=== PATIENT | female | born 1985 | race Hispanic/Latino ===

== ENCOUNTER 2017-06-20 19:51 | Emergency (ER) | payer MEDICAID, SELFPAY ==
[2017-06-20] MEDS ORDERED: Lorazepam 2 MG/ML VIAL ONE (20:08)
[2017-06-20 20:56] LABS: #Basophils 0.1 thou/uL (0.0-0.2); #Eosinphils 0.2 thou/uL (0.0-0.7); #Lymphocytes 4.3 thou/uL (1.20-3.40); #Monocytes 0.7 thou/uL (0.11-0.59); #Neutrophils 5.3 thou/uL (1.40-6.50); %Basophils 1.3 % (0.0-1.0); %Eosinophils 1.7 % (0.0-10.0); %Lymphocytes 40.5 % (21.0-51.0); %Monocytes 6.5 % (0.0-10.0); Hematocrit 49.7 % (36.0-47.0); Mean Platelet Volume 9.1 fL (7.4-10.4); Red Blood Cell (RBC) Count 5.74 mill/uL (4.20-5.40); White Blood Cell (WBC) Count 10.6 thou/uL (4.8-10.8)
[2017-06-20 21:05] LABS: ALT (SGPT) 15 U/L (8-55); AST (SGOT) 13 U/L (5-34); Alkaline Phosphatase 126 U/L (40-150); Anion Gap 17 mmol/L (10-20); BUN (Urea Nitrogen) 9 mg/dL (7.0-18.7); Bilirubin, Total 0.4 mg/dL (0.2-1.2); Calc. Creatinine Clearance 0 mL/min (70-130); Carbon Dioxide 21 mmol/L (22-29); Chloride 103 mmol/L (98-107); Estimated GFR-MDRD 78; Globulin 3.6 g/dL (2.4-3.5)
[2017-06-20] MEDS ORDERED: Ketorolac Tromethamine 30 MG/ML VIAL ONE (22:36)
[2017-06-20] MEDS ORDERED: Insulin Regular 300 UNITS/3 ML VIAL ONE (22:48)
== END 2017-06-20 23:42 | disposition home or self-care (01) ==
LOC: ERS 19:51
DX: F43.9 Reaction to severe stress, unspecified (principal); R06.4 Hyperventilation; E11.65 Type 2 diabetes mellitus with hyperglycemia; I10 Essential (primary) hypertension; G43.909 Migraine, unspecified, not intractable, without status migrainosus; F17.210 Nicotine dependence, cigarettes, uncomplicated
CPT/HCPCS: 36416; 80053; 85025; 93005; 93010; 96361; 96374; 96375; J1815; J1885; J2060

== ENCOUNTER 2017-12-19 07:38 | Emergency (ER) | payer SELFPAY ==
[2017-12-19 08:00] LABS: #Eosinphils 0.2 thou/uL (0.0-0.7); #Monocytes 0.7 thou/uL (0.11-0.59); #Neutrophils 13.6 thou/uL (1.40-6.50); %Basophils 0.1 % (0.0-1.0); %Lymphocytes 6.4 % (21.0-51.0); %Monocytes 4.3 % (0.0-10.0); %Neutrophils 88.1 % (42.0-75.0); Hemoglobin 16.9 g/dL (12.0-16.0); Mean Corpuscular HGB CONC 34.1 g/dL (32.0-36.0); Mean Corpuscular Hemoglobin 29.4 pg (27.0-31.0); Mean Corpuscular Volume 86.1 fl (81.0-99.0); Mean Platelet Volume 8.6 fL (7.4-10.4); Platelet Count 211 thou/uL (130-400); Red Blood Cell (RBC) Count 5.77 mill/uL (4.20-5.40); White Blood Cell (WBC) Count 15.4 thou/uL (4.8-10.8)
[2017-12-19 08:10] LABS: ALT (SGPT) 16 U/L (8-55); AST (SGOT) 13 U/L (5-34); Albumin 4.3 g/dL (3.5-5.0); Alkaline Phosphatase 116 U/L (40-150); Anion Gap 16 mmol/L (10-20); BUN (Urea Nitrogen) 17 mg/dL (7.0-18.7); Bilirubin, Total 0.8 mg/dL (0.2-1.2); Calc. Creatinine Clearance 0 mL/min (70-130); Calcium 9.5 mg/dL (7.8-10.44); Carbon Dioxide 28 mmol/L (22-29); Chloride 98 mmol/L (98-107); Estimated GFR-MDRD 89; Globulin 3.3 g/dL (2.4-3.5); Glucose 411 mg/dL (70-105); Lipase 33 U/L (8-78); Potassium 4.6 mmol/L (3.5-5.1); Protein, Total 7.6 g/dL (6.0-8.3); Sodium 137 mmol/L (136-145)
[2017-12-19 08:50] LABS: BHCG - Serum Negative (NEGATIVE); Pregs Control Background? CLEAR/WHITE (CLR/WHITE); Pregs Control Bar Appear? YES (CONTROL BAR)
[2017-12-19 09:10] LABS: Bilirubin Negative (Negative); Blood, Urine Negative (Negative); Clarity CLEAR (Clear); Glucose, Urine (Dipstick) >=1000 mg/dL (Negative); Leukocyte Negative (Negative); Nitrite Negative (Negative); Protein, Urine (Dipstick) Trace mg/dL (Neg-Trace); Urobilinogen 0.2 mg/dL (0.2-1.0); pH, Urine 5.5 (5.0-9.0)
[2017-12-19 09:16] LABS: Specific Gravity, Urine 1.042 (1.002-1.036)
[2017-12-19] MEDS ORDERED: Ondansetron HCl/PF 4 MG/2 ML Vial ONE ×2 (09:35→11:24)
[2017-12-19] MEDS ORDERED: Fentanyl 100 MCG/2 ML VIAL ONE (09:35)
[2017-12-19 09:56] LABS: Base Excess-Venous -0.3 mmol/L (0 (+/- 2.5)); Bicarbonate (HCO3v) 26.1 mmol/L (1.0-85.0); CO2 Tension (PvCO2) 47.3 mmHg (41.0-51.0); Calcium, Ionized 0.98 mmol/L (1.12-1.32); Hemoglobin - Calc 18.6 g/dL (12.0-18.0); O2 Tension (PvO2) 44.7 mmHg (35.0-45.0); Potassium 4.5 mmol/L (3.4-4.7); T. Carbon Dioxide 27.6 mmol/L (1.0-85.0); vO2 Saturation-calc 77.6 % (94-98)
--- NOTE | 2017-12-19 10:18 | ULT ---
ULTRASOUND ABDOMEN LIMITED: (RIGHT UPPER QUADRANT) HISTORY: Right upper quadrant abdominal pain and nausea in 32-year-old female. FINDINGS: The gallbladder has normal wall thickness and has no evidence of gallstones or sludge. The hepatic e chogenicity is diffusely increased, consistent with fatty liver. The right kidney has normal echogen icity and has no hydronephrosis. The pancreas is visualized, although ultrasound is relatively insen sitive for pancreatic pathology compared to CT and MRI. There is no biliary dilation. The common du ct caliber is 5 mm. IMPRESSION: 1) Hepatic steatosis. 2) Otherwise negative. [facility] POS: [facility]
--- NOTE | 2017-12-19 10:39 | CT ---
CT ABDOMEN AND PELVIS WITH CONTRAST: COMPARISON: Right upper quadrant abdominal pain that radiates to the back since [place]. TECHNIQUE: Multiple contiguous axial images were obtained in a CT of the abdomen and pelvis with contrast. Mel nal reformats were performed. FINDINGS: The liver, gallbladder, kidneys, adrenal glands, spleen, and pancreas are unremarkable. No free air, free fluid, or stranding changes are seen in the ad and pelvis. The large and small bowel are unremarkable. The appendix is normal. The reproductive organs are unr emarkable. No abdominal or pelvic lymphadenopathy are seen. The osseous structures, visualized inferior thorax, and abdominal wall soft tissues are unremarkable. IMPRESSION: No evidence of acute intraabdominal/pelvic abnormality. POS: [facility]
[2017-12-19] MEDS ORDERED: Promethazine HCl 25 MG/ML VIAL ONE (11:54)
[2017-12-19] MEDS ORDERED: ISOVUE-370 76%-LOCM 1 ML ONE (14:45)
== END 2017-12-19 16:20 | disposition home or self-care (01) ==
LOC: ERS 07:38
DX: R11.2 Nausea with vomiting, unspecified (principal); R19.7 Diarrhea, unspecified; I10 Essential (primary) hypertension; E11.9 Type 2 diabetes mellitus without complications; G43.909 Migraine, unspecified, not intractable, without status migrainosus; F17.210 Nicotine dependence, cigarettes, uncomplicated
CPT/HCPCS: 36415; 36416; 74177; 76705; 80053; 81003; 82010; 82330; 82803; 83690; 83735; 84443; 84703; 85025; 96361; 96365; 96366; 96375; 96376; J2405; J2550; J3010

== ENCOUNTER 2018-03-03 08:53 | Emergency (ER) | payer SELFPAY ==
[2018-03-03] MEDS ORDERED: Dicyclomine 20 MG TAB ONE (10:38)
[2018-03-03] MEDS ORDERED: Ondansetron ODT 4 MG TAB ONE (10:38)
[2018-03-03 11:04] LABS: Bilirubin Negative (Negative); Blood, Urine Negative (Negative); Clarity CLEAR (Clear); Glucose, Urine (Dipstick) >=1000 mg/dL (Negative); Leukocyte Trace (Negative); Nitrite Negative (Negative); Protein, Urine (Dipstick) Trace mg/dL (Neg-Trace); Specific Gravity, Urine 1.038 (1.002-1.036); Urobilinogen 0.2 mg/dL (0.2-1.0)
[2018-03-03 11:07] LABS: Bacteria/HPF 2+ HPF (None Seen); Hyaline Casts/LPF 0-3 HYALINE CAST LPF (0-3 Hyaline); Pathc Cast-AUWi Flag 0.72 (0-2.49); RBC/HPF 0-3 HPF (0-3); WBC/HPF 21-50 HPF (0-3)
--- NOTE | 2018-03-03 11:27 | ULT ---
COMPLETE ABDOMEN ULTRASOUND: INDICATION: History of a 10-week and abdominal pain. COMPARISON: CT of the abdomen and pelvis dated 12/19/17. FINDINGS: The liver is enlarged measuring 17.8 cm with diffuse increased echogenicity consistent with fatty inf iltration. There are areas of suspected focal fatty sparing near the gallbladder fossa measuring 3.2 and an additional seen within the posterior right hepatic lobe measuring 2.6 cm. No suspicious foca l lesion is seen on CT examination in December of 2017. The gallbladder is decompressed. The common bile duct measured 5 mm. No sonographic Ivy's sign i s reported. The abdominal aorta and IVC were within normal limits. The right kidney measures 1.7 cm and the left measured 4.4 cm. IMPRESSION: 1. Findings of hepatomegaly and fatty infiltration. There are focal hypoechoic regions within the l iver adjacent to the gallbladder fossa and posterior right hepatic lobe suspicious for focal fatty sp aring. 2. Decompressed gallbladder. POS: [facility]
--- NOTE | 2018-03-03 11:31 | ULT ---
TRANSVAGINAL TRANSABDOMINAL PELVIC ULTRASOUND: INDICATION: Abdominal pain and history of 1st trimester . TECHNIQUE: Color Doppler, rodrigues scale, and spectral Doppler images were obtained with transabdominal and transvag inal approach. FINDINGS: The uterus measured 14.7 x 6.7 x 2.1 cm. There is a live intrauterine gestation with pole iden tified. No subchorionic hemorrhage is evident. heart tones are measured at 162 beats per major te. O free fluid is evident. The average gestational age by ultrasound is 8 weeks and 1 day with th e estimated due date of 10/12/18. Estimated gestational age by LMP was 10 weeks and 1 day with the es timated due date of 09/28/18. The right ovary measured 2.8 x 2.2 x 2.1 cm. The left ovary measured 2.4 x 2.3 x 1.6 cm. There is n ormal vascular flow to the ovaries. IMPRESSION: Single live intrauterine gestation. POS: [facility]
[2018-03-03 13:04] LABS: Anion Gap 10 mmol/L (10-20); BUN (Urea Nitrogen) 11 mg/dL (7.0-18.7); Calc. Creatinine Clearance 0 mL/min (70-130); Calcium 8.5 mg/dL (7.8-10.44); Carbon Dioxide 23 mmol/L (22-29); Chloride 106 mmol/L (98-107); Estimated GFR-MDRD Greater than 90; Glucose 279 mg/dL (70-105); Potassium 4.1 mmol/L (3.5-5.1); Sodium 135 mmol/L (136-145)
[2018-03-03 14:03] LABS: Bicarbonate (HCO3v) 22.3 mmol/L (1.0-85.0); Calcium, Ionized 1.16 mmol/L (1.12-1.32); Hemoglobin - Calc 13.8 g/dL (12.0-18.0); O2 Tension (PvO2) 34.9 mmHg (35.0-45.0); T. Carbon Dioxide 23.5 mmol/L (1.0-85.0); pH (Venous) 7.354 (7.35-7.45); vO2 Saturation-calc 64.4 % (94-98)
== END 2018-03-03 14:31 | disposition home or self-care (01) ==
LOC: ERS 08:53
DX: O23.41 Unspecified infection of urinary tract in pregnancy, first trimester (principal); O24.111 Pre-existing type 2 diabetes mellitus, in pregnancy, first trimester; E11.9 Type 2 diabetes mellitus without complications; O99.351 Diseases of the nervous system complicating pregnancy, first trimester; G43.909 Migraine, unspecified, not intractable, without status migrainosus; Z87.891 Personal history of nicotine dependence; Z3A.01 Less than 8 weeks gestation of pregnancy
CPT/HCPCS: 36415; 36416; 76700; 76856; 80048; 81003; 81015; 82010; 82330; 82803; 85014; 87077; 87086; 87186; 93976; 96360; 96361; Q0162

== ENCOUNTER 2018-05-09 15:29 | Emergency (ER) | payer MEDICAID, OTHER ==
[2018-05-09 16:00] LABS: #Basophils 0.1 thou/uL (0.0-0.2); #Eosinphils 0.1 thou/uL (0.0-0.7); #Lymphocytes 1.9 thou/uL (1.20-3.40); #Monocytes 0.5 thou/uL (0.11-0.59); #Neutrophils 7.4 thou/uL (1.40-6.50); %Basophils 0.6 % (0.0-1.0); %Lymphocytes 18.7 % (21.0-51.0); %Monocytes 4.8 % (0.0-10.0); %Neutrophils 74.9 % (42.0-75.0); Mean Corpuscular HGB CONC 36.1 g/dL (32.0-36.0); Mean Corpuscular Hemoglobin 31.4 pg (27.0-31.0); Mean Corpuscular Volume 86.9 fL (78.0-98.0); Mean Platelet Volume 7.6 fL (7.4-10.4); Platelet Count 196 thou/uL (130-400); RBC Distribution Width 11.8 % (11.5-14.5); Red Blood Cell (RBC) Count 4.45 mill/uL (4.20-5.40); White Blood Cell (WBC) Count 9.9 thou/uL (4.8-10.8)
[2018-05-09 16:07] LABS: Bilirubin Negative (Negative); Blood, Urine Negative (Negative); Clarity CLEAR (Clear); Glucose, Urine (Dipstick) 250 mg/dL (Negative); Leukocyte Negative (Negative); Nitrite Negative (Negative); Protein, Urine (Dipstick) Trace mg/dL (Neg-Trace); Specific Gravity, Urine 1.014 (1.002-1.036)
[2018-05-09 16:41] LABS: ALT (SGPT) 10 U/L (8-55); AST (SGOT) 11 U/L (5-34); Albumin 3.5 g/dL (3.5-5.0); Alkaline Phosphatase 96 U/L (40-150); Anion Gap 15 mmol/L (10-20); BUN (Urea Nitrogen) 10 mg/dL (7.0-18.7); Bilirubin, Total Less than 0.2 mg/dL (0.2-1.2); Calc. Creatinine Clearance 0 mL/min (70-130); Calcium 9.8 mg/dL (7.8-10.44); Carbon Dioxide 23 mmol/L (22-29); Chloride 101 mmol/L (98-107); Estimated GFR-MDRD Greater than 90; Glucose 162 mg/dL (70-105); Lipase 35 U/L (8-78); Potassium 3.7 mmol/L (3.5-5.1); Protein, Total 7.5 g/dL (6.0-8.3); Sodium 135 mmol/L (136-145)
[2018-05-09] MEDS ORDERED: diphenhydrAMINE 50 MG/ML VIAL ONE (17:30)
[2018-05-09] MEDS ORDERED: Metoclopramide HCl 10 MG/2 ML VIAL ONE (17:30)
== END 2018-05-09 18:50 | disposition home or self-care (01) ==
LOC: ERS 15:29
DX: O99.89 Other specified diseases and conditions complicating pregnancy, childbirth and the puerperium (principal); R51 Headache; M54.5 Low back pain; O99.282 Endocrine, nutritional and metabolic diseases complicating pregnancy, second trimester; E11.9 Type 2 diabetes mellitus without complications; O99.352 Diseases of the nervous system complicating pregnancy, second trimester; G43.909 Migraine, unspecified, not intractable, without status migrainosus; Z87.891 Personal history of nicotine dependence; Z3A.19 19 weeks gestation of pregnancy
CPT/HCPCS: 36415; 36416; 80053; 81003; 83690; 84702; 85025; 87086; 96365; 96375; J1200; J2765

== ENCOUNTER 2019-03-18 12:47 | Emergency (ER) | payer OTHER ==
[2019-03-18] MEDS ORDERED: Proparacaine 0.5% Opth 15 ML BOT ONE (14:12)
[2019-03-18] MEDS ORDERED: Fluorescein Opthalmic Strip ONE (14:12)
== END 2019-03-18 15:21 | disposition home or self-care (01) ==
LOC: ERS 12:47
DX: S05.02XA Injury of conjunctiva and corneal abrasion without foreign body, left eye, initial encounter (principal); F17.210 Nicotine dependence, cigarettes, uncomplicated; X58.XXXA Exposure to other specified factors, initial encounter
CPT/HCPCS: 99282

== ENCOUNTER 2019-10-07 09:48 | Emergency (ER) | payer OTHER ==
[2019-10-07 10:52] LABS: #Lymphocytes 1.4 thou/uL (1.20-3.40); #Monocytes 0.6 thou/uL (0.11-0.59); #Neutrophils 5.1 thou/uL (1.40-6.50); %Basophils 0.7 % (0.0-1.0); %Eosinophils 0.6 % (0.0-10.0); %Lymphocytes 18.8 % (21.0-51.0); %Monocytes 8.7 % (0.0-10.0); %Neutrophils 71.2 % (42.0-75.0); Hemoglobin 15.1 g/dL (12.0-16.0); Mean Corpuscular HGB CONC 33.6 g/dL (32.0-36.0); Mean Corpuscular Hemoglobin 28.6 pg (27.0-31.0); Mean Corpuscular Volume 85.1 fL (78.0-98.0); Mean Platelet Volume 9.9 fL (7.4-10.4); Platelet Count 131 thou/uL (130-400); RBC Distribution Width 12.6 % (11.5-14.5); Red Blood Cell (RBC) Count 5.28 mill/uL (4.20-5.40); White Blood Cell (WBC) Count 7.2 thou/uL (4.8-10.8)
[2019-10-07] MEDS ORDERED: Acetaminophen 325 MG TAB ONE (10:52)
[2019-10-07 10:57] LABS: BHCG - Serum Negative (NEGATIVE); Pregs Control Background? CLEAR/WHITE (CLR/WHITE); Pregs Control Bar Appear? YES (CONTROL BAR)
[2019-10-07 11:14] LABS: Base Excess-Venous -0.1 mmol/L (-2.0 to 3.0); CO2 Tension (PvCO2) 36.9 mmHg (40.0-50.0); Calcium, Ionized 1.08 mmol/L (See Comments:); Chloride 102 mmol/L (98-107); Hemoglobin - Calc 15.8 g/dL (12.0-16.0); Potassium 3.8 mmol/L (3.5-5.1); Sodium 136 mmol/L (138-145); T. Carbon Dioxide 25.2 mmol/L (22.0-28.0); vO2 Saturation-calc 89.1 % (60.0-85.0)
[2019-10-07 11:16] LABS: ALT (SGPT) 36 U/L (8-55); AST (SGOT) 29 U/L (5-34); Albumin 3.7 g/dL (3.5-5.0); Alkaline Phosphatase 107 U/L (40-110); Anion Gap 12 mmol/L (10-20); BUN (Urea Nitrogen) 7 mg/dL (7.0-18.7); Bilirubin, Total 0.3 mg/dL (0.2-1.2); Calc. Creatinine Clearance 0 mL/min (70-130); Calcium 8.7 mg/dL (7.8-10.44); Carbon Dioxide 26 mmol/L (22-29); Chloride 102 mmol/L (98-107); Estimated GFR-MDRD 84; Globulin 3.3 g/dL (2.4-3.5); Glucose 341 mg/dL (70-105); Potassium 4.2 mmol/L (3.5-5.1); Sodium 136 mmol/L (136-145)
--- NOTE | 2019-10-07 11:44 | RAD ---
Portable chest: HISTORY: Chest pain COMPARISON: none FINDINGS: Lung henson are clear. Heart and mediastinum appear unremarkable. Vascularity is normal. Visualized osseous structures unremarkable. IMPRESSION: No acute finding
[2019-10-07 11:50] LABS: Bilirubin Negative (Negative); Blood, Urine 1+ (Negative); Clarity Clear (Clear); Glucose, Urine (Dipstick) Greater than 1000 mg/dL (Negative); Leukocyte 250 Leu/uL (Negative); Nitrite Negative (Negative); Protein, Urine (Dipstick) 50 mg/dL (Neg-Trace); Urobilinogen Normal mg/dL (Less than 2)
[2019-10-07 11:58] LABS: Bacteria/HPF None Seen HPF (None Seen); Yeast-Budding 1+ HPF (None Seen)
[2019-10-07] MEDS ORDERED: Sodium Chloride 0.9% 1,000 ML IV SCH (12:00)
[2019-10-07] MEDS ORDERED: Ketorolac Tromethamine 30 MG/ML VIAL IVP SCH (12:30)
[2019-10-07] MEDS ORDERED: Acetaminophen 325 MG TAB PO SCH (12:30)
[2019-10-07] MEDS ORDERED: Oseltamivir 75 MG CAP PO SCH (12:30)
[2019-10-07] MEDS ORDERED: Ketorolac Tromethamine 30 MG/ML VIAL ONE (12:49)
== END 2019-10-07 13:02 | disposition home or self-care (01) ==
LOC: ERS 09:48
DX: J10.1 Influenza due to other identified influenza virus with other respiratory manifestations (principal); E11.65 Type 2 diabetes mellitus with hyperglycemia; N39.0 Urinary tract infection, site not specified; I10 Essential (primary) hypertension; G43.909 Migraine, unspecified, not intractable, without status migrainosus; F17.210 Nicotine dependence, cigarettes, uncomplicated; Z79.4 Long term (current) use of insulin
CPT/HCPCS: 36415; 36416; 71045; 80053; 81003; 81015; 82010; 82330; 82803; 84703; 85025; 87081; 87430; 87804; 96361; 96374; J1885

== ENCOUNTER 2020-08-02 16:48 | Emergency (ER) | payer OTHER ==
[2020-08-02] MEDS ORDERED: Fluorescein Opthalmic Strip ONE (18:03)
[2020-08-02] MEDS ORDERED: Proparacaine 0.5% Opth 15 ML BOT ONE (18:03)
[2020-08-02] MEDS ORDERED: Gentamicin Ophth Soln 0.3% 5 ml Bottle ONE ×2 (18:40→18:41)
== END 2020-08-02 19:55 | disposition home or self-care (01) ==
LOC: ERS 16:48
DX: S05.02XA Injury of conjunctiva and corneal abrasion without foreign body, left eye, initial encounter (principal); R00.0 Tachycardia, unspecified; E11.65 Type 2 diabetes mellitus with hyperglycemia; I10 Essential (primary) hypertension; G43.909 Migraine, unspecified, not intractable, without status migrainosus; F17.210 Nicotine dependence, cigarettes, uncomplicated; Z79.4 Long term (current) use of insulin; X58.XXXA Exposure to other specified factors, initial encounter
CPT/HCPCS: 36416; 99283

== ENCOUNTER 2021-06-18 14:33 | Inpatient (IN) | payer OTHER ==
[2021-06-18] MEDS ORDERED: Acetaminophen 500 MG TAB ONE (15:01)
[2021-06-18] MEDS ORDERED: Ondansetron PF 4 MG/2 ML Vial ONE (15:01)
[2021-06-18] MEDS ORDERED: cefTRIAXone\\ROCEPHIN 2 GM VIAL ONE (15:01)
[2021-06-18 15:18] LABS: BHCG - Serum Negative (NEGATIVE); Pregs Control Background? CLEAR/WHITE (CLR/WHITE); Pregs Control Bar Appear? YES (CONTROL BAR)
[2021-06-18 15:35] LABS: #Lymphocytes 1.2 thou/uL (1.20-3.40); #Monocytes 0.8 thou/uL (0.11-0.59); #Neutrophils 12.1 thou/uL (1.40-6.50); %Basophils 0.1 % (0.0-1.0); %Lymphocytes 8.2 % (21.0-51.0); %Monocytes 5.5 % (0.0-10.0); %Neutrophils 86.2 % (42.0-75.0); Hemoglobin 14.3 g/dL (12.0-16.0); Mean Corpuscular HGB CONC 34.7 g/dL (32.0-36.0); Mean Corpuscular Hemoglobin 28.9 pg (27.0-31.0); Mean Corpuscular Volume 83.3 fL (78.0-98.0); Platelet Count 185 thou/uL (130-400); RBC Distribution Width 12.9 % (11.5-14.5); Red Blood Cell (RBC) Count 4.95 mill/uL (4.20-5.40)
[2021-06-18 15:53] LABS: Bacteria/HPF 3+ HPF (None Seen); Bilirubin Negative (Negative); Blood, Urine 2+ (Negative); Clarity Turbid (Clear); Glucose, Urine (Dipstick) Greater than 1000 mg/dL (Negative); Ketone, Urine 20 mg/dL (Negative); Leukocyte 500 Leu/uL (Negative); Nitrite Negative (Negative); Protein, Urine (Dipstick) 200 mg/dL (Neg-Trace); Specific Gravity, Urine 1.028 (1.002-1.036); Urobilinogen Normal mg/dL (Less than 2); WBC/HPF Greater than 50 HPF (0-3)
[2021-06-18 17:24] LABS: Albumin 2.9 g/dL (3.5-5.0)
[2021-06-18 17:25] LABS: Calcium 7.8 mg/dL (7.8-10.44); Chloride 105 mmol/L (98-107); Sodium 138 mmol/L (136-145)
[2021-06-18 17:26] LABS: Globulin 2.8 g/dL (2.4-3.5); Glucose 69 mg/dL (70-105); Protein, Total 5.7 g/dL (6.0-8.3)
[2021-06-18 17:28] LABS: Anion Gap 12 mmol/L (10-20); Bilirubin, Total Less than 0.2 mg/dL (0.2-1.2); Carbon Dioxide 25 mmol/L (22-29)
[2021-06-18 17:29] LABS: Alkaline Phosphatase 97 U/L (40-110)
[2021-06-18 17:30] LABS: BUN (Urea Nitrogen) 18 mg/dL (7.0-18.7); Calc. Creatinine Clearance 0 mL/min (70-130)
[2021-06-18 17:31] LABS: AST (SGOT) 9 U/L (5-34)
[2021-06-18 17:32] LABS: ALT (SGPT) Less than 7 U/L (8-55); Lipase 10 U/L (8-78)
[2021-06-18] MEDS ORDERED: HumaLOG 300 UNITS/3 ML VIAL SC PRN (18:20)
[2021-06-18] MEDS ORDERED: Ondansetron PF 4 MG/2 ML Vial IVP PRN (18:20)
[2021-06-18] MEDS ORDERED: Dextrose 50% Abboject 50 ML SYRINGE SLOW IVP PRN (18:20)
[2021-06-18] MEDS ORDERED: Dextrose 5% in Water 1,000 ML IV PRN (18:20)
[2021-06-18] MEDS ORDERED: Fentanyl 100 MCG/2 ML VIAL SLOW IVP PRN (18:24)
[2021-06-18] MEDS ORDERED: Ketorolac Tromethamine 30 MG/ML VIAL IVP PRN (18:24)
[2021-06-18 18:57] LABS: Lactic Acid 1.7 mmol/L (0.5-2.2)
[2021-06-18] MEDS: Acetaminophen 325 MG TAB PO PRN (20:15)
[2021-06-18] MEDS: Sodium Chloride 0.9% 1,000 ML IV SCH (20:21)
[2021-06-18 22:43] VITALS: BMI 27.9
[2021-06-19] MEDS: Nystatin 500,000 UNITS/5 ML UDCUP SSW SCH ×5 (01:01→22:06)
[2021-06-19 06:27] LABS: #Lymphocytes 0.9 thou/uL (1.20-3.40); #Monocytes 1.4 thou/uL (0.11-0.59); #Neutrophils 9.9 thou/uL (1.40-6.50); %Basophils 0.1 % (0.0-1.0); %Lymphocytes 7.7 % (21.0-51.0); %Monocytes 11.1 % (0.0-10.0); %Neutrophils 81.1 % (42.0-75.0); Mean Corpuscular HGB CONC 33.2 g/dL (32.0-36.0); Mean Corpuscular Hemoglobin 27.7 pg (27.0-31.0); Mean Corpuscular Volume 83.4 fL (78.0-98.0); Mean Platelet Volume 9.8 fL (7.4-10.4); Platelet Count 140 thou/uL (130-400); RBC Distribution Width 12.5 % (11.5-14.5); Red Blood Cell (RBC) Count 4.68 mill/uL (4.20-5.40); White Blood Cell (WBC) Count 12.2 thou/uL (4.8-10.8)
[2021-06-19] MEDS: Acetaminophen 325 MG TAB PO PRN (06:27)
[2021-06-19 06:56] LABS: Anion Gap 13 mmol/L (10-20); BUN (Urea Nitrogen) 12 mg/dL (7.0-18.7); Calc. Creatinine Clearance 137 mL/min (70-130); Calcium 7.9 mg/dL (7.8-10.44); Carbon Dioxide 24 mmol/L (22-29); Chloride 104 mmol/L (98-107); Glucose 196 mg/dL (70-105); Sodium 137 mmol/L (136-145)
[2021-06-19] MEDS: HumaLOG 300 UNITS/3 ML VIAL SC PRN ×3 (07:52→18:08)
[2021-06-19] MEDS: Sodium Chloride 0.9% 1,000 ML IV SCH ×3 (07:59→18:20)
[2021-06-19 12:19] LABS: SARS-CoV-2 PCR by NAA Not Detected (NotDetected)
[2021-06-19] MEDS: Acetaminophen 500 MG TAB PO PRN ×2 (14:33→22:06)
[2021-06-19] MEDS: HumaLOG 300 UNITS/3 ML VIAL SC SCH ×2 (14:34→22:00)
[2021-06-19] MEDS ORDERED: cefTRIAXone\\ROCEPHIN 2 GM in Sodium Chloride 0.9% 100 ML IVPB SCH (15:30)
[2021-06-19] MEDS: Lantus 1000 UNITS/10 ML VIAL SC SCH (21:56)
[2021-06-20] MEDS: Sodium Chloride 0.9% 1,000 ML IV SCH (03:08)
[2021-06-20] MEDS: Acetaminophen 500 MG TAB PO PRN (06:05)
[2021-06-20] MEDS ORDERED: Metoclopramide HCl 10 MG TAB PO SCH (09:00)
[2021-06-20] MEDS ORDERED: Gabapentin 300 MG CAP PO SCH (09:00)
[2021-06-20] MEDS ORDERED: Bupropion 150 MG XL TAB PO SCH (09:00)
[2021-06-20] MEDS ORDERED: Losartan 25 MG TAB PO SCH (09:00)
[2021-06-20] MEDS: Nystatin 500,000 UNITS/5 ML UDCUP SSW SCH ×2 (09:18→13:15)
[2021-06-20] MEDS: HumaLOG 300 UNITS/3 ML VIAL SC SCH (09:20)
[2021-06-20] MEDS: Lantus 1000 UNITS/10 ML VIAL SC SCH (09:29)
[2021-06-20] MEDS: HumaLOG 300 UNITS/3 ML VIAL SC PRN (11:45)
[2021-06-20 12:34] VITALS: BP 106/71; TEMP 98.4
[2021-06-20] MEDS ORDERED: Ciprofloxacin 500 MG TAB PO SCH (20:00)
== END 2021-06-20 14:55 | disposition home or self-care (01) | DRG 872 ==
LOC: ERS 14:33 → EEVIPCON 17:01 → SURG B 17:01
PROVIDERS: ADMIT Family Medicine; ATTEND Internal Medicine
DX: A41.51 Sepsis due to Escherichia coli [E. coli] (principal); N10 Acute pyelonephritis; B37.0 Candidal stomatitis; E88.09 Other disorders of plasma-protein metabolism, not elsewhere classified; Z20.822 Contact with and (suspected) exposure to COVID-19; I10 Essential (primary) hypertension; E11.9 Type 2 diabetes mellitus without complications; E78.5 Hyperlipidemia, unspecified; G43.909 Migraine, unspecified, not intractable, without status migrainosus; F17.210 Nicotine dependence, cigarettes, uncomplicated; R65.20 Severe sepsis without septic shock; F39 Unspecified mood [affective] disorder; K57.90 Diverticulosis of intestine, part unspecified, without perforation or abscess without bleeding; Z88.5 Allergy status to narcotic agent; Z91.018 Allergy to other foods; Z87.442 Personal history of urinary calculi; Z79.4 Long term (current) use of insulin; Z79.899 Other long term (current) drug therapy
CPT/HCPCS: 36415; 36416; 71045; 74176; 80048; 80053; 81003; 81015; 83605; 83690; 84703; 85025; 87040; 87077; 87086; 87186; 93005; J0696; J1815; J1885; J1956; J2405; J3490; J7050; U0003; U0005

== ENCOUNTER 2022-01-18 10:00 | Emergency (ER) | payer OTHER ==
[2022-01-18] MEDS ORDERED: Meclizine HCl 25 MG TAB ONE (11:13)
[2022-01-18 11:54] LABS: Hemoglobin 14.5 g/dL (12.0-16.0); Mean Corpuscular HGB CONC 33.1 g/dL (32.0-36.0); Mean Corpuscular Hemoglobin 27.8 pg (27.0-31.0); Mean Platelet Volume 9.6 fL (7.4-10.4); Platelet Count 138 thou/uL (130-400); RBC Distribution Width 13.3 % (11.5-14.5); White Blood Cell (WBC) Count 7.8 thou/uL (4.8-10.8)
[2022-01-18 11:58] LABS: BHCG - Serum Negative (NEGATIVE); Pregs Control Background? CLEAR/WHITE (CLR/WHITE); Pregs Control Bar Appear? YES (CONTROL BAR)
[2022-01-18 12:03] LABS: ALT (SGPT) 16 U/L (8-55); AST (SGOT) 17 U/L (5-34); Albumin 3.5 g/dL (3.5-5.0); Alkaline Phosphatase 103 U/L (40-110); Anion Gap 14 mmol/L (10-20); BUN (Urea Nitrogen) 15 mg/dL (7.0-18.7); Bilirubin, Total 0.3 mg/dL (0.2-1.2); Calc. Creatinine Clearance 0 mL/min (70-130); Carbon Dioxide 25 mmol/L (22-29); Chloride 104 mmol/L (98-107); Globulin 3.8 g/dL (2.4-3.5); Glucose 63 mg/dL (70-105); Potassium 3.2 mmol/L (3.5-5.1); Protein, Total 7.3 g/dL (6.0-8.3); Sodium 140 mmol/L (136-145)
[2022-01-18 12:10] LABS: Band 16 % (5-11); Eosinophils 1 % (0-10); Lymphocytes 27 % (21-51); MDiff Complete? YES; Monocytes 8 % (0-10); Neutrophil 48 % (42-75); RBC Morphology Normal
[2022-01-18 12:36] LABS: Bacteria/HPF 4+ HPF (None Seen); Bilirubin Negative (Negative); Blood, Urine 1+ (Negative); Clarity Turbid (Clear); Glucose, Urine (Dipstick) 200 mg/dL (Negative); Ketone, Urine Trace mg/dL (Negative); Leukocyte 500 Leu/uL (Negative); Nitrite 2+ (Negative); Protein, Urine (Dipstick) 300 mg/dL (Neg-Trace); Specific Gravity, Urine 1.022 (1.002-1.036); Urobilinogen Normal mg/dL (Less than 2); WBC/HPF Greater than 50 HPF (0-3)
[2022-01-18 12:47] LABS: Unclassified Crystals 2+ HPF (None Seen)
[2022-01-18] MEDS ORDERED: Potassium Chloride 20 MEQ TAB ONE (13:10)
== END 2022-01-18 16:45 | disposition home or self-care (01) ==
LOC: ERS 10:00
DX: B34.9 Viral infection, unspecified (principal); I10 Essential (primary) hypertension; E11.9 Type 2 diabetes mellitus without complications; F17.210 Nicotine dependence, cigarettes, uncomplicated
CPT/HCPCS: 36416; 80053; 81003; 81015; 84703; 85025; 93005

== ENCOUNTER 2023-04-14 14:08 | Emergency (ER) | payer OTHER | END 2023-04-14 17:15 | disposition home or self-care (01) | LOC: ERS 14:08 | DX: E10.649 Type 1 diabetes mellitus with hypoglycemia without coma (principal); I10 Essential (primary) hypertension; F17.210 Nicotine dependence, cigarettes, uncomplicated; Z79.899 Other long term (current) drug therapy; Z79.01 Long term (current) use of anticoagulants | CPT/HCPCS: 36416; 99284 ==

== ENCOUNTER 2024-06-25 10:17 | Emergency (ER) | payer SELFPAY ==
[2024-06-25] MEDS ORDERED: Ketorolac Tromethamine 30 MG (1 mL) VIAL ONE (10:44)
[2024-06-25] MEDS ORDERED: Ondansetron PF 4 MG/2 ML Vial ONE (10:44)
[2024-06-25 10:52] LABS: #Basophils 0.03 10x3/uL (0.0-0.2); %Basophils 0.4 % (0.0-1.0); %Eosinophils 1.6 % (0.0-10.0); %Lymphocytes 28.8 % (21.0-51.0); %Monocytes 6.8 % (0.0-10.0); %Neutrophils 61.9 % (42.0-75.0); Hematocrit 41.9 % (36.0-47.0); Hemoglobin 14.2 g/dL (12.0-16.0); Mean Corpuscular HGB CONC 33.9 g/dL (32.0-36.0); Mean Corpuscular Hemoglobin 28.2 pg (27.0-31.0); Mean Corpuscular Volume 83.1 fL (78.0-98.0); Mean Platelet Volume 10.7 fL (7.4-10.4); Platelet Count 216 10x3/uL (130-400); RBC Distribution Width 12.8 % (11.5-14.5); Red Blood Cell (RBC) Count 5.04 mill/uL (4.20-5.40)
[2024-06-25 11:02] LABS: BHCG - Serum Negative (NEGATIVE); Pregs Control Background? CLEAR/WHITE (CLR/WHITE); Pregs Control Bar Appear? YES (CONTROL BAR)
[2024-06-25 11:10] LABS: ALT (SGPT) 13 U/L (8-55); AST (SGOT) 13 U/L (5-34); Albumin 3.2 g/dL (3.5-5.0); Alkaline Phosphatase 109 U/L (40-110); Anion Gap 13 mmol/L (10-20); BUN (Urea Nitrogen) 16 mg/dL (7.0-18.7); Bilirubin, Total 0.3 mg/dL (0.2-1.2); Calc. Creatinine Clearance 0 mL/min (70-130); Calcium 9.2 mg/dL (7.8-10.44); Carbon Dioxide 24 mmol/L (22-29); Chloride 103 mmol/L (98-107); Estimated GFR 96; Glucose 366 mg/dL (70-105); Potassium 4.2 mmol/L (3.5-5.1); Protein, Total 7.2 g/dL (6.0-8.3); Sodium 136 mmol/L (136-145)
[2024-06-25 11:21] LABS: Bacteria/HPF None Seen HPF (None Seen); Bilirubin Negative (Negative); Blood, Urine Trace (Negative); CAUTI Indications for Culture Dysuria,urgency,freq; Clarity Clear (Clear); Glucose, Urine (Dipstick) Greater than 1000 mg/dL (Negative); Ketone, Urine 20 mg/dL (Negative); Leukocyte Negative Leu/uL (Negative); Nitrite Negative (Negative); Protein, Urine (Dipstick) 100 mg/dL (Neg-Trace); RBC/HPF 0-3 HPF (0-3); Specific Gravity, Urine 1.035 (1.002-1.036); Urobilinogen Normal mg/dL (Less than 2); WBC/HPF 0-3 HPF (0-3); pH, Urine 5.5 (5.0-9.0)
[2024-06-25 11:23] LABS: Urine Culture Reflex No No
== END 2024-06-25 14:03 | disposition home or self-care (01) ==
LOC: ERS 10:17
DX: M48.061 Spinal stenosis, lumbar region without neurogenic claudication (principal); E11.9 Type 2 diabetes mellitus without complications
CPT/HCPCS: 74176; 80053; 81001; 84703; 85025; 96374; 96375; J1885; J2405

== ENCOUNTER 2024-06-27 11:11 | Emergency (ER) | payer SELFPAY ==
[2024-06-27] MEDS ORDERED: Ketorolac Tromethamine 30 MG (1 mL) VIAL ONE (12:23)
[2024-06-27] MEDS ORDERED: Dexamethasone 10 MG/ML VIAL ONE (12:24)
[2024-06-27] MEDS ORDERED: Lidocaine 4% Patch ONE (12:57)
[2024-06-27 14:57] LABS: #Basophils 0.03 10x3/uL (0.0-0.2); %Basophils 0.4 % (0.0-1.0); %Eosinophils 0.5 % (0.0-10.0); %Lymphocytes 7.3 % (21.0-51.0); %Monocytes 3.3 % (0.0-10.0); Hematocrit 42.2 % (36.0-47.0); Hemoglobin 14.1 g/dL (12.0-16.0); Mean Corpuscular HGB CONC 33.4 g/dL (32.0-36.0); Mean Corpuscular Volume 86.7 fL (78.0-98.0); Mean Platelet Volume 10.8 fL (7.4-10.4); Platelet Count 201 10x3/uL (130-400); RBC Distribution Width 13.1 % (11.5-14.5); Red Blood Cell (RBC) Count 4.87 mill/uL (4.20-5.40)
[2024-06-27 15:07] LABS: BHCG - Serum Negative (NEGATIVE); Pregs Control Background? CLEAR/WHITE (CLR/WHITE); Pregs Control Bar Appear? YES (CONTROL BAR)
[2024-06-27 15:12] LABS: CRP,High Sensitivity (Inhouse) 0.44 mg/dL (< or = 0.5)
[2024-06-27 15:20] LABS: ALT (SGPT) 14 U/L (8-55); AST (SGOT) 15 U/L (5-34); Albumin 3.2 g/dL (3.5-5.0); Alkaline Phosphatase 103 U/L (40-110); Anion Gap 13 mmol/L (10-20); BUN (Urea Nitrogen) 16 mg/dL (7.0-18.7); Bilirubin, Total 0.3 mg/dL (0.2-1.2); Calc. Creatinine Clearance 0 mL/min (70-130); Calcium 9.1 mg/dL (7.8-10.44); Carbon Dioxide 21 mmol/L (22-29); Chloride 106 mmol/L (98-107); Estimated GFR 110; Globulin 3.6 g/dL (2.4-3.5); Glucose 424 mg/dL (70-105); Potassium 4.6 mmol/L (3.5-5.1); Protein, Total 6.8 g/dL (6.0-8.3); Sodium 135 mmol/L (136-145)
== END 2024-06-27 16:16 | disposition home or self-care (01) ==
LOC: ERS 11:11
DX: M48.061 Spinal stenosis, lumbar region without neurogenic claudication (principal); G89.29 Other chronic pain; E11.9 Type 2 diabetes mellitus without complications; Z55.6 Problems related to health literacy; Z98.890 Other specified postprocedural states
CPT/HCPCS: 36415; 72146; 72148; 80053; 84703; 85025; 86141; 96372; J1100; J1885

== ENCOUNTER 2024-09-12 18:46 | Emergency (ER) | payer SELFPAY ==
[2024-09-12] MEDS ORDERED: Amoxicillin/Potassium Clav 875 MG TAB ONE (21:37)
[2024-09-12] MEDS ORDERED: Ondansetron ODT 4 MG TAB ONE (21:38)
[2024-09-12] MEDS ORDERED: Dicyclomine 20 MG TAB ONE (21:38)
== END 2024-09-12 21:51 | disposition home or self-care (01) ==
LOC: ERS 18:46
DX: B34.9 Viral infection, unspecified (principal); J01.10 Acute frontal sinusitis, unspecified; E11.9 Type 2 diabetes mellitus without complications
CPT/HCPCS: 71045; 87428; 99284; Q0162

== ENCOUNTER 2025-05-25 21:40 | Emergency (ER) | payer SELFPAY | END 2025-05-25 23:18 | disposition home or self-care (01) | LOC: ERS 21:40 | DX: L08.9 Local infection of the skin and subcutaneous tissue, unspecified (principal); E10.9 Type 1 diabetes mellitus without complications | CPT/HCPCS: 10060; 99282 ==